=== PATIENT | male | born 1970 | race African-American/Black ===

== ENCOUNTER 2022-07-06 21:22 | Emergency (ER) | payer OTHER ==
[~2022-07-06] VITALS: Ht 185.4 cm; Wt 97.5 kg
[2022-07-06 21:55] LABS: BASOPHILS % 0.5 % (0.0-1.0); EOSINOPHILS # (AUTO) 0.1 (0.0-0.4); EOSINOPHILS % 1.6 % (0.0-6.0); HEMATOCRIT 33.2 % (38.2-49.6); HEMOGLOBIN 10.6 g/dL (14.0-18.0); LYMPHOCYTES # (AUTO) 2.1 (1.0-3.2); LYMPHOCYTES % 26.3 % (18.0-39.1); MEAN CORPUSCULAR HEMOGLOBIN 29.4 pg (28-32); MEAN CORPUSCULAR HGB CONC 31.9 g/dL (31-35); MONOCYTES # (AUTO) 0.6 (0.2-0.8); NEUTROPHILS % 63.2 % (38.7-80.0); PLATELET COUNT 281 x10e3/uL (140-360); RED BLOOD COUNT 3.61 x10e6/uL (4.3-5.7); RED CELL DISTRIBUTION WIDTH 11.9 % (11.7-14.4)
[2022-07-06 22:14] LABS: ALBUMIN 3.5 g/dL (3.5-5.0); ALBUMIN/GLOBULIN RATIO 0.9 (0.8-2.0); ANION GAP 15.6 mmol/L (8-16); CALCIUM 8.9 mg/dL (8.4-10.2); CREATININE, SERUM 2.04 mg/dL (0.72-1.25); POTASSIUM 3.6 mmol/L (3.5-5.1)
[2022-07-06] MEDS ORDERED: LOSARTAN POTASS25 MG PO (22:21)
[2022-07-06] MEDS ORDERED: ATORVASTATIN CA40 MG PO (22:21)
[2022-07-06] MEDS ORDERED: GABAPENTIN600 MG PO (22:21)
[2022-07-06] MEDS ORDERED: HYDROCODON-ACE1 EA11 PO (22:21)
[2022-07-06] MEDS ORDERED: MEMANTINE HCL5 MG PO (22:21)
[2022-07-06] MEDS ORDERED: TRAZODONE HCL50 MG PO (22:21)
[2022-07-06] MEDS ORDERED: LOPRESSOR25 MG PO (22:21)
[2022-07-06] MEDS ORDERED: RISPERIDONE2 MG PO (22:21)
[2022-07-06] MEDS ORDERED: DONEPEZIL HCL5 MG PO (22:21)
[2022-07-06] MEDS ORDERED: INSULIN LI100 UNIT/4 (22:21)
[2022-07-06] MEDS ORDERED: BRILINTA90 MG PO (22:21)
== END 2022-07-07 01:37 | disposition home or self-care (01) ==
LOC: ER 21:27
DX: R55 Syncope and collapse (principal); I10 Essential (primary) hypertension; E11.9 Type 2 diabetes mellitus without complications; E78.5 Hyperlipidemia, unspecified; F01.50 Vascular dementia, unspecified severity, without behavioral disturbance, psychotic disturbance, mood disturbance, and anxiety; K21.9 Gastro-esophageal reflux disease without esophagitis; G40.909 Epilepsy, unspecified, not intractable, without status epilepticus; R94.31 Abnormal electrocardiogram [ECG] [EKG]; Z95.5 Presence of coronary angioplasty implant and graft; F17.210 Nicotine dependence, cigarettes, uncomplicated
CPT/HCPCS: 36415; 70450; 71045; 80053; 82550; 82553; 82948; 84484; 85025; 93005; 99284